=== PATIENT | female | born 1945 | race Caucasian/White ===

== ENCOUNTER 2016-07-19 16:20 | Emergency (ER) | payer OTHER, MEDICARE ==
[2016-07-19 16:54] VITALS: TEMP 98.8
[2016-07-19 16:55] VITALS: O2SAT 95
[2016-07-19 17:29] LABS: % IMMATURE GRANULYOCYTES 0.1 % (0.0-1.1); ABSOLUTE IMMATURE GRANULOCYTES 0.01 10^3/uL (0.00-0.10); ADD DIFF? NO; ADD MORPH? NO; ADD SCAN? NO; ATYPICAL LYMPHOCYTE FLAG 10 (0-99); FRAGMENT RBC FLAG 0 (0-99); HEMATOCRIT 45.3 % (38.0-47.0); HEMOGLOBIN 15.6 g/dL (12.6-16.3); LEFT SHIFT FLG 0 (0-99); LIPEMIA HEMOLYSIS FLAG 90 (0-99); MEAN CELL HEMOGLOBIN 31.2 pg (27.9-34.1); MEAN CELL HEMOGLOBIN CONCENTR. 34.4 g/dL (32.4-36.7); MEAN CELL VOLUME 90.6 fL (81.5-99.8); MEAN PLATELET VOLUME 10.5 fL (8.7-11.7); PLATELET CLUMPS FLAG 0 (0-99); PLATELET COUNT 244 10^3/uL (150-400); RED CELL DISTRIBUTION WIDTH 13.8 % (11.5-15.2)
[2016-07-19 17:45] LABS: ANION GAP 14 mEq/L (8-16); CARBON DIOXIDE 25 mEq/l (22-31); CHLORIDE 102 mEq/L (97-110); CREATININE 0.8 mg/dL (0.6-1.0); GLOMERULAR FILTRATION RATE > 60; GLUCOSE 82 mg/dL (70-100); POTASSIUM 4.1 mEq/L (3.5-5.2); SODIUM 141 mEq/L (134-144)
[2016-07-19 18:12] LABS: COLOR YELLOW; LEUKOCYTE ESTERASE,URINE 1+ (NEGATIVE)
[2016-07-19 18:13] LABS: NITRITE,URINE POSITIVE (NEGATIVE)
[2016-07-19] MEDS ORDERED: IBUPROFEN 200 MG TAB PO ONE (18:17)
[2016-07-19 18:20] LABS: BACTERIA 3+ /hpf (NONE SEEN); MUCUS TRACE /lpf (NONE-1+); RBC,URINE NONE SEEN /hpf (0-3)
--- NOTE | 2016-07-19 18:58 | UCPHY ---
H & P Time Seen by Provider: 07/19/16 17:40 Patient Type: New HPI/ROS: This patient complains of right hip pain and right leg swelling. She explains that the leg swelling has been present for several weeks waxing waning degree but the right hip pain just started coming on over the past 5 days or so at times is moderate to severe. She denies any recent injuries to the area. Symptoms do increased with walking. She started using a treadmill recently and wonders if she may have injured herself. She is accompanied by her daughter who is an RN. ROS: She reports no HEENT complaints. No constitutional complaints including no fevers. No pulmonary complaints. Cardiovascular: No lightheadedness. She has noticed any blood discoloration of the right side. Musculoskeletal: No recent trauma. No deformity. GI: No belly pain, nausea vomiting or diarrhea. : No complaints. 7 point ROS is otherwise negative Past Medical/Surgical History: Obesity Smoking Status: Never smoked Physical Exam: General Appearance: Pleasant obese 70-year-old femaleAlert, no distress. Eyes: Pupils equal and round no pallor or injection. ENT, Mouth: Mucous membranes moist. Respiratory: There are no retractions, lungs are clear to auscultation. Cardiovascular: Regular rate and rhythm. Gastrointestinal: Abdomen is soft and nontender, no masses, bowel sounds normal. back: No midline lumbar tenderness. No CVA tenderness. Extremities: Atraumatic normal except for right hip with lateral tenderness - mild. Slight increased pain with flexion extension no other exacerbating factors on exam. No gross deformity. No malrotation or shortening. The exam: Atraumatic in symmetric with the opposite knee. Right leg mildly edematous with negative Homans exam no significant ankle swelling or tenderness. Neurological: Alert with no light touch sensory motor deficits in the lower extremities Skin: Warm and dry, no rashes. Musculoskeletal: Neck is supple nontender. Extremities are symmetrical, full range of motion. Psychiatric: mood and affect are normal l DIFFERENTIAL DIAGNOSIS: After history and physical exam differential diagnosis was considered for osteoarthritis, bursitis, muscle strain, cystitis, pyelonephritis Constitutional: Initial Vital Signs Temperature (C) 37.1 C 07/19/16 16:47 Heart Rate 66 07/19/16 16:47 Respiratory Rate 12 07/19/16 16:47 Blood Pressure 194/78 H 07/19/16 16:47 O2 Sat (%) 95 07/19/16 16:47 O2 Delivery Mode Room Air Allergies/Adverse Reactions: No Known Allergies Allergy (Unverified 07/19/16 16:46) Home Medications: Medication Instructions Recorded Cephalexin [Keflex (*)] 500 mg PO TID #21 cap 07/19/16 Lialda 07/19/16 MDM/Departure - MDM Diagnostics: Hip x-ray: I do not appreciate an acute fracture. I also reviewed Dr. Gonzalez is -radiologist read negative for acu te fracture urinalysis consistent with mild UTI. Medications Given: Discontinued Medications Ibuprofen (Motrin) 600 mg PO EDNOW ONE Stop: 07/19/16 18:18 Last Admin: 07/19/16 18:20 Dose: 600 mg ED Course/Re-evaluation: I counseled patient regarding cystitis on musculoskeletal hip pain that is likely bursitis. - Depart Disposition: Home, Routine, Self-Care Clinical Impression: Cystitis Hip pain Qualifiers: Laterality: right Qualified Code(s): M25.551 - Pain in right hip Condition: Good Instructions: Urinary Tract Infection in Women (ED), Hip Pain (ED) Additional Instructions: Diagnoses: 1. Right hip pain 2. Bladder infection PLan: [id number] mg per 6 hours if needed for pain. Tylenol in addition if needed Keflex antibiotic for the bladder infection Call Dr. mcconnell-logistic specialist arrange follow-up appointment in 5-10 days to recheck your hip. Return here for any significant worsening despite the treatment plan or go to the emergency department Prescriptions: Cephalexin [Keflex (*)] 500 mg PO TID #21 cap Referrals: Unknown,Unknown [Primary Care Provider] - As per Instructions - PQRS PQRS Measurement: 134: Depression screening and followup, PRIME MD-PHQ2 (12 years and older) Over the last 2 weeks, how often have you been bothered by any of the following problems? 1. Feeling down, depressed, or hopeless? 2. Little interest or pleasure in doing things? Patient answered no to both 1 and 2 130: Documentation of medications. Reviewed all patient medications, doses, route and frequency. 226: Do you smoke? [No.] 47: 65 and older: Advanced care planning. Patient has an advance care directive 51: 18 years old and older with diagnosis of COPD, spirometry performance. NA 52: 18 years old and older with COPD and symptoms of COPD or FEV1<60% predicted prescribed a B Agonist. NA
[2016-07-19 20:22] VITALS: BP 172/78; PULSE 72; RESP 14
== END 2016-07-19 19:42 | disposition home or self-care (01) ==
LOC: CED 16:20
DX: M25.551 Pain in right hip (principal); N39.0 Urinary tract infection, site not specified
CPT/HCPCS: 73502; G0463; 80048-PO; 81003-PO; 81015-PO; 85025-PO; 85378-PO; 99203-PO

== ENCOUNTER → 2016-12-11 | Outpatient (CLI) | payer OTHER, MEDICARE | LOC: CIMAGING 10:51 | PROVIDERS: ATTEND Family Medicine | DX: Z12.31 Encounter for screening mammogram for malignant neoplasm of breast (principal) | CPT/HCPCS: G0202 ==

== ENCOUNTER → 2017-03-06 | Outpatient (CLI) | payer OTHER, MEDICARE | LOC: CIMAGING 08:40 | PROVIDERS: ATTEND Internal Medicine Gastroenterology | DX: R10.11 Right upper quadrant pain (principal); R93.421 Abnormal radiologic findings on diagnostic imaging of right kidney | CPT/HCPCS: 76705-PO ==

== ENCOUNTER → 2017-03-10 | Outpatient (CLI) | payer OTHER, MEDICARE ==
[~2017-03-10] MED LIST: IOPAMIDOL (ISOVUE-300) 100 ML BTL ONE
== END ==
LOC: CIMAGING 11:01
PROVIDERS: ATTEND Family Medicine
DX: N28.89 Other specified disorders of kidney and ureter (principal); I70.0 Atherosclerosis of aorta; K57.30 Diverticulosis of large intestine without perforation or abscess without bleeding
CPT/HCPCS: 74178; Q9967

== ENCOUNTER → 2017-03-19 | Outpatient (CLI) | payer OTHER, MEDICARE | LOC: BMCIMAGING 11:21 | PROVIDERS: ATTEND Family Medicine | DX: Z13.820 Encounter for screening for osteoporosis (principal); M81.0 Age-related osteoporosis without current pathological fracture ==

== ENCOUNTER → 2017-04-11 | Outpatient (CLI) | payer OTHER, MEDICARE | LOC: CIMAGING 12:13 | PROVIDERS: ATTEND Internal Medicine Gastroenterology | DX: M79.661 Pain in right lower leg (principal); M79.89 Other specified soft tissue disorders | CPT/HCPCS: 93971-PO ==